=== PATIENT | female | born 2005 | race Two or more races ===

== ENCOUNTER 2025-04-26 00:26 | Emergency (ER) | payer MEDICAID, SELFPAY ==
[2025-04-26 00:33] VITALS: BMI 32.4
[2025-04-26 00:46] VITALS: BP 112/72; PULSE 97; RESP 18; TEMP 36.6; O2SAT 98
--- NOTE | 2025-04-26 00:58 | XR_ITS ---
Examination: CT brain head without contrast. 2-D sagittal coronal reconstructions Date and time of exam:April 26, 2025, 0209 hours INDICATION: Syncopal episode this morning CTDI: vol (mGy):48.8 DLP: (mGycm):963 Technique: Multiple CT axial sections of the brain have been obtained, 5 mm slice thickness. Contrast has not been administered. 2-D sagittal, coronal reconstructions have been obtained Low dose protocols were performed. One or more of the following dose reduction techniques were used; automated exposure control, adjustment of the mA and/or KV according to patient size, use of iterative reconstruction technique. Findings: No significant ventricular enlargement. Intra-axial or extra-axial hemorrhage density is not seen. No mass effect or midline shift Basal cisterns are not remarkable. Fourth ventricle is midline. Cranial vault intact. Impression: Negative for acute hemorrhage, mass effect or midline shift
--- NOTE | 2025-04-26 00:58 | XR_ITS ---
Examination: AP chest single view FINDINGS: Upright PA chest single view Date and time: April 26, 2025 0101 hours INDICATION: Syncopal episode yesterday. FINDINGS: Normal heart size Lungs are clear. The osseous structures are intact IMPRESSION: No active disease
--- NOTE | 2025-04-26 00:58 | EKG_ITS ---
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
--- NOTE | 2025-04-26 01:02 | PD.EDSYNC ---
ED Syncope RME/HPI General Chief Complaint: Syncope / Near Syncope Stated Complaint: Syncopal episode this AM Time Seen by Provider: 04/26/25 00:58 Arrival date/time: 04/26/25 00:26 19F with no significant PMH presents to ED with syncopal episode this morning when patient woke up. Patient states she woke up, stood up, heard a ringing in ears, got dizzy, and passed out. When patient woke up, she was lying on her bed. Patient denies AMS, history of seizures, N/V, vision changes, drug/alcohol use, CP, and SOB, as well as anxiety/depression. No chiropractor manipulation. Limitations: no limitations Related Data Allergies Allergy/AdvReac Type Severity Reaction Status Date / Time No Known Allergies Allergy Verified 04/26/25 00:33 Review of Systems Review of Systems Systems Reviewed: All systems reviewed, normal except as documented Constitutional Constitutional: Reports system reviewed and no additional complaints, except as documented, Denies fever(s) and Denies headache(s) ENT Ears, Nose, Mouth, and Throat: Denies disequilibrium and Denies headache(s) Cardiovascular Cardiovascular: Reports system reviewed and no additional complaints, except as documented, Denies chest pain, Denies dyspnea and Reports syncope Respiratory Respiratory: Reports system reviewed and no additional complaints, except as documented, Denies cough and Denies dyspnea Gastrointestinal Gastrointestinal: Reports system reviewed and no additional complaints, except as documented, Denies abdominal pain, Denies nausea and Denies vomiting Neurologic Neurologic: Reports system reviewed and no additional complaints, except as documented, Reports as per HPI, Denies confusion, Denies disequilibrium, Denies headache(s) and Reports syncope Psychiatric Psychiatric: Denies confusion Past Medical History Social History SMOKING STATUS: Never smoker ED Exam General Limitations: Present no limitations General appearance: Present alert and in no apparent distress Head Head exam: Present atraumatic Eye Eye exam: Present normal appearance, PERRL and EOMI ENT ENT exam: Present normal exam, normal oropharynx and mucous membranes moist Neck Neck exam: Present normal inspection, full ROM and trachea midline Chest Chest inspection: Present normal inspection and symmetric chest wall rise Respiratory Respiratory exam: Present normal lung sounds bilaterally Cardiovascular Cardiovascular exam: Present regular rate, normal rhythm and normal heart sounds Abdominal Exam Abdominal exam: Present soft and normal bowel sounds Extremities Exam Extremities exam: Present normal inspection and full ROM Back Exam Back exam: Present normal inspection and full ROM Neurological Exam Neurological exam: Present alert, oriented X3 and CN II-XII intact Psychiatric Psychiatric exam: Present normal affect and normal mood Skin Skin exam: Present warm, dry, intact and normal color Course Quality Measures none Orders Category Date Time Status EKG (ED ONLY) *Do not use* NOW Care 04/26/25 00:[address] head/brain wo con Stat Exams 04/26/25 00:58 Taken EKG (ED Only) Stat Exams 04/26/25 00:58 Draft XR chest 1V portable Stat Exams 04/26/25 00:58 Taken Alcohol, Blood Medical Stat Lab 04/26/25 01:15 Completed CBC Stat Lab 04/26/25 01:15 Completed Comprehensive Metabolic Panel Stat Lab 04/26/25 01:15 Completed D-Dimer Stat Lab 04/26/25 01:15 Completed Drug Screen,Urine Stat Lab 04/26/25 03:10 Completed HCG Qualitative,Urine Stat Lab 04/26/25 03:10 Completed Troponin I Stat Lab 04/26/25 01:15 Completed Urinalysis Stat Lab 04/26/25 03:10 Completed Vital Signs Vital signs: Vital Signs Temperature 98 F 04/26/25 00:46 Pulse Rate 97 04/26/25 00:46 Respiratory Rate 18 04/26/25 00:46 Blood Pressure 112/72 04/26/25 00:46 Pulse Oximetry (%) 98 04/26/25 00:46 Oxygen Delivery Method Room Air 04/26/25 00:46 O2 at 98% on RA and WNLs Syncope MDM Narrative MDM Narrative:: 19F with no significant PMH presents to ED with syncopal episode this morning when patient woke up. Patient states she woke up, stood up, heard a ringing in ears, got dizzy, and passed out. When patient woke up, she was lying on her bed. Patient denies AMS, history of seizures, N/V, vision changes, drug/alcohol use, CP, and SOB, as well as anxiety/depression. No chiropractor manipulation. Physical exam reveals normal pupil response and EOM. CN II-XII grossly intact. Gait normal. Speech normal. Normal WOB. Neck ROM intact. Patient is afebrile, calm, and alert. CT unremarkable. EKG is NSR. Normal trop and D-dimer. Wet CXR read normal pending official report. CMP unremarkable. HCG/tox/alcohol screen. UA clean. Patient data External records reviewed:: None Clinical information provided by:: patient Social determinants that could affect healthcare access:: none Patient has the following chronic illnesses:: none How is presenting disease/condition affected by chronic disease/condition?: no chronic disease Evaluation data The following diagnostics were reviewed and interpreted by me:: lab results, radiology exam(s) and EKG tracing(s) Lab and/or radiology exams considered but not ordered:: ordered Interpretation Summary: above Medications / Prescriptions Medications or Prescriptions considered but not ordered:: not ordered Medication administrations:: n/a Consultations Consultation(s) initiated? (list below): No Diagnosis Syncope Differential Diagnosis: syncope due to orthostatic hypotension, vasovagal syncope, complete atrioventricular block, subarachnoid hemorrhage, pulmonary embolism and dehydration Most likely diagnosis given after review of the tests above:: vasovagal syncope Admission Indicated Admission indicated?: not indicated Admission Request Was there a request for admission?: No Disposition Plan Disposition Plan: Discharge Discharge Attestation Discharge Attestation: The patient and all family members were given an opportunity to ask questions and understood the discharge instructions. Discharge instructions specifically effects, indications for sooner follow up or return to the emergency department, and the expected course of current diagnosis. Patient condition: Stable Discharge Plan Plan Patient Disposition: HOME (Self Care) Discharge Disposition comment: Stable Prescriptions/Referrals Referrals: Galilea Boone PA-C ([facility]) [Primary Care Provider] - In 1 week Problem List Clinical Impression: Vasovagal syncope Patient/Caregiver Discharge Instructions Education Materials: ED Fainting, Vagal Reaction Additional Instructions: Please follow-up with PCP within 24-48 hours and return immediately if symptoms worsen. Print Language: Japanese Stand Alone Forms: Patient Portal Info Letter MALENA/FLORENCIO Supervising Physician BISMARK Supervising Physician: Dr. Mckeon
[2025-04-26 01:24] LABS: Basophils % (Auto) 0 % (0-2.5); Eosinophils % (Auto) 0 % (0-10); Hematocrit 32.4 % (36.0-46.0); Hemoglobin 11.1 g/dL (12.0-16.0); Immature Granulocytes % (Auto) 0 % (0-0); Immature Granulocytes Auto 0.05 Thou/mm3 (0.00-0.00); Lymphocytes # (Auto) 3.2 Thou/mm3 (1.0-4.8); Lymphocytes % (Auto) 23 % (10-50); Mean Corpuscular HGB Conc 34.3 g/dl (31.0-37.0); Mean Corpuscular Volume 82 fL (80-100); Monocytes # (Auto) 0.8 Thou/mm3 (0.0-0.8); Monocytes % (Auto) 6 % (0-12); Neutrophils % (Auto) 71 % (37-80); Nucleated Red Blood Cell % 0 /100 WBC (0); Platelet Count 373 Thou/mm3 (140-440); RDW Standard Deviation 37.8 fL (36.4-46.3); Red Blood Count 3.96 Miln/mm3 (4.00-5.20); White Blood Count 14.1 Thou/mm3 (4.5-11.0)
[2025-04-26 01:50] LABS: D-Dimer < 250 ng/mL (<600)
[2025-04-26 02:03] LABS: Alanine Aminotransferase 13 U/L (10-49); Albumin, Serum 4.4 gm/dL (3.5-5.0); Albumin/Globulin Ratio 1.7 (1.2-2.2); Alcohol, Blood Medical < 3.0 mg/dL (0-10.0); Alkaline Phosphatase 85 U/L (46-116); Anion Gap 13 (7-16); Aspartate Amino Transferase 17 U/L (0-34); BUN/Creatinine Ratio 14 Ratio (12-20); Bilirubin,Total 0.4 mg/dL (0.3-1.2); Blood Urea Nitrogen 11 mg/dL (9-23); Calcium 8.9 mg/dL (8.3-10.6); Calcium (Corrected) 8.9 mg/dL (8.5-10.1); Carbon Dioxide 24.1 mMol/L (20.0-31.0); Chloride 106 mMol/L (98-107); Creatinine (Component) 0.8 mg/dL (0.6-1.3); Estimated Creatinine Clearance 114.5 mL/min (>60); Globulin 2.6 gm/dL (2.3-3.5); Glucose 104 mg/dL (74-106); Osmolality,Calculated 284 (275-295); Potassium 4.2 mMol/L (3.4-5.1); Sodium 143 mMol/L (136-145); Troponin I < 0.002 ng/mL (0.0-0.045); eGFR > 60 See Note
[2025-04-26 03:18] LABS: Collection Type, Urine Clean Catch
[2025-04-26 03:30] LABS: HCG Qualitative,Urine Negative
[2025-04-26 03:32] LABS: Bacteria,Urine Rare; Bilirubin,Urine Negative (Negative); Blood,Urine Negative (Negative); Clarity,Urine Turbid (Clear/Hazy); Color,Urine Yellow (Lt Yel-Yel); Glucose, Urine Negative (Negative); Ketones,Urine Trace (Negative); Leukocyte Esterase,Urine Negative (Negative); Nitrite,Urine Negative (Negative); Protein,Urine Trace (Neg - Trace); RBC,Urine 7 /hpf (0-3); Specific Gravity,Urine 1.027 (1.001-1.035); Squamous Epithelial Cell,Urine 8 /hpf (0-5); Urobilinogen,Urine Negative mg/dL (0.0-1.0); WBC,Urine 8 /hpf (0-5)
[2025-04-26 03:35] LABS: Amphetamine/Methamp Scrn,U Negative (Negative); Barbiturate Screen,Urine Negative (Negative); Benzodiazepines Screen,Urine Negative (Negative); Benzoylecgonine Screen, Ur Negative (Negative); Fentanyl Screen,Urine Negative (Negative); Opiate Screen,Urine Negative (Negative); THC Screen,Urine Negative (Negative)
--- NOTE | 2025-04-26 03:51 | PRELIM_ITS ---
CT scan of the head without intravenous contrast (axial sections with sagittal and coronal reformats) April 26, 2025 at 0209 hours Clinical History: Syncope. Comparison: None. Findings: No evidence of intracranial hemorrhage, mass effect or midline shift. The ventricles and CSF spaces are unremarkable. The calvarium is intact. The mastoid air cells and the visualized paranasal sinuses are clear. Impression: No evidence of intracranial hemorrhage, midline shift or calvarial fracture. Report Electronically Signed By: Margarito Bowles 04/26/2025 3:51:25 AM [EST]
[2025-04-26 04:01] VITALS: RESP 18
== END 2025-04-26 04:02 | disposition home or self-care (01) ==
PROVIDERS: Physician Assistant; Emergency Provider Emergency Medicine; PCP Physician Assistant
DX: R55 Syncope and collapse (principal)
CPT/HCPCS: 36415; 70450; 71045; 80053; 80307; 80320; 81001; 81025; 84484; 85025; 85379; 93005; 99284; G0480

== ENCOUNTER 2025-10-13 01:43 | Emergency (ER) | payer MEDICAID, SELFPAY ==
[2025-10-13 01:44] VITALS: BMI 30.2
[2025-10-13 01:45] VITALS: BP 133/86; PULSE 82; RESP 19; TEMP 37.1; O2SAT 98
--- NOTE | 2025-10-13 01:52 | XR_ITS ---
Examination: OB Transvaginal ultrasound of the pelvis, complete Technique: Transvaginal sonographic images pelvis performed using gorman scale imaging Exam date and time: October 13, 2025, 0225 hours INDICATIONS: Pelvic cramping and vaginal bleeding today FINDINGS: Uterus 8.1 cm intrauterine gestational sac 0.5 cm corresponds to 5 weeks 2 days gestational age No pole, no cardiac activity Right ovary 3.4 cm arterial flow Left ovary 2.0 cm arterial flow No fluid in the cul-de-sac IMPRESSION: Empty intrauterine gestational sac corresponding to 5 weeks 2 days gestational age, no pole, no cardiac activity Recommend short-term follow-up pelvic sonography to document viability
--- NOTE | 2025-10-13 01:53 | EDNOTE_ITS ---
ED OB Contraction Preg RMI/HPI General Chief complaint: Vaginal Bleeding Stated complaint: 5 WKS PREG ABD PAIN VAG BLEED Time Seen by Provider: 10/13/25 01:52 Arrival date/time: 10/13/25 01:43 20F at approximately 5 weeks and with no significant PMH presents to ED with 1 day of pelvic pain/cramping and vaginal spotting. Patient denies vaginal discharge and dysuria. Limitations: no limitations Related Data Allergies Allergy/AdvReac Type Severity Reaction Status Date / Time No Known Allergies Allergy Verified 10/13/25 01:47 Review of Systems Review of Systems Systems Reviewed: All systems reviewed, normal except as documented Genitourinary Genitourinary: Reports as per HPI, Reports abnormal vaginal bleeding and Reports pelvic pain Past Medical History Social History SMOKING STATUS: Never smoker ED Exam General Limitations: Present no limitations General appearance: Present alert and in no apparent distress Head Head exam: Present atraumatic Neck Neck exam: Present normal inspection, full ROM and trachea midline Chest Chest inspection: Present normal inspection and symmetric chest wall rise Neurological Exam Neurological exam: Present alert and oriented X3 Psychiatric Psychiatric exam: Present normal affect and normal mood Skin Skin exam: Present warm, dry, intact and normal color Course Quality Measures none Orders Category Date Time Status Administer Rhogam NOW Care 10/13/25 04:27 Active US OB transvaginal Stat Exams 10/13/25 01:52 Taken Beta HCG,Quantitative Stat Lab 10/13/25 03:24 Completed CBC Stat Lab 10/13/25 03:24 Completed CMP [Comprehensive Metabolic Panel] Stat Lab 10/13/25 03:24 Completed RHOGAM [Rho(D) Immune Globulin] Stat Lab 10/13/25 03:24 Results Type and Screen Stat Lab 10/13/25 03:24 Results Type and Screen Stat Lab 10/13/25 04:27 Ordered Urinalysis, C/S if Indicated Stat Lab 10/13/25 03:32 Completed Vital Signs Vital signs: Vital Signs Temperature 98.7 F 10/13/25 01:45 Pulse Rate 82 10/13/25 01:45 Respiratory Rate 19 10/13/25 01:45 Blood Pressure 133/86 H 10/13/25 01:45 Pulse Oximetry (%) 98 10/13/25 01:45 Oxygen Delivery Method Room Air 10/13/25 01:45 O2 at 98% on RA and WNLs Vaginal Bleeding MDM Narrative MDM Narrative: 20F at approximately 5 weeks and with no significant PMH presents to ED with 1 day of pelvic pain/cramping and vaginal spotting. Patient denies vaginal discharge and dysuria. Physical exam reveals well-appearing female. Patient is afebrile, calm, and alert. US Telerad IUP but no FHR. Minimal leukocytosis and anemia. CMP unremarkable. UA only blood. O- blood type. Rhogam given. Likely incomplete miscarriage since her HCG about 7 days ago at [facility] was in the 900s (per patient) and today it is in the 800s. Regional Loss Prevention Manager given. Patient data External records reviewed:: [facility] previous records Clinical information provided by:: patient Social determinants that could affect healthcare access:: none Patient has the following chronic illnesses:: none How is presenting disease/condition affected by chronic disease/condition?: no chronic disease Evaluation data The following diagnostics were reviewed and interpreted by me:: lab results and radiology exam(s) Lab and/or radiology exams considered but not ordered:: ordered Interpretation Summary: above Medications / Prescriptions Medications or Prescriptions considered but not ordered:: not ordered Medication administrations:: n/a Consultations Consultation(s) initiated? (list below): No Diagnosis Vaginal Bleeding Differential Diagnosis: missed , threatened , dysfunctional uterine bleeding, menometrorrhagia, incomplete , ectopic without intrauterine , vaginal bleeding and other (need for rhogam) Most likely diagnosis given after review of the tests above:: need for rhogam and incomplete miscarriage. Admission Indicated Admission indicated?: not indicated Admission Request Was there a request for admission?: No Disposition Plan Disposition Plan: Discharge Discharge Attestation Discharge Attestation: The patient and all family members were given an opportunity to ask questions and understood the discharge instructions. Discharge instructions specifically effects, indications for sooner follow up or return to the emergency department, and the expected course of current diagnosis. Patient condition: Stable Discharge Plan Plan Patient Disposition: HOME (Self Care) Discharge Disposition comment: Stable Prescriptions/Referrals Referrals: No Primary/Family,Physician [Primary Care Provider] - In 1 week Problem List Clinical Impression: Need for rhogam due to Rh negative mother, Incomplete miscarriage Patient/Caregiver Discharge Instructions Education Materials: ED Miscarriage, Incomplete Additional Instructions: Please follow-up with PCP/OBYGN within 24-48 hours and return immediately if symptoms worsen. You are likely going through a miscarriage as your HCG went from the 900s last week to 802 @ 10/13 3:24 AM today. Print Language: Nicaraguan Stand Alone Forms: Patient Portal Info Letter PA/PUBLIC ADDRESS SYSTEM INSTALLER Supervising Physician MALENA/FLORENCIO Supervising Physician: Dr. Figueroa
--- NOTE | 2025-10-13 03:08 | PRELIM_ITS ---
Pelvic ultrasound ( transvaginal) with Doppler and wave Doppler spectral analysis. October 13, 2025 at 0225 hours Clinical history: Pain/bleeding; 5 weeks. Technique: Real-time, grayscale, transabdominal and transvaginal pelvic ultrasound was performed using Duplex scanning including arterial inflow, venous outflow, color and spectral Doppler. Comparison: None available at the time of this report. Findings: The uterus is normal in size measuring 8.1 x 4.1 x 4.6 cm. Intrauterine gestational sac measuring 0.5 cm corresponding to a gestational age of 5 weeks and 2 days, the yolk sac is not visualized, the pole is not visualized. The right ovary measures 3.4 x 2.0 x 2.7 cm and is unremarkable. The left ovary measures 1.8 x 1.8 x 2.0 cm and is unremarkable. Both ovaries demonstrate color flow and spectral waveforms on Doppler evaluation. There is no adnexal mass. There is no free fluid on the submitted images. Impression: Intrauterine gestational sac measuring 0.5 cm corresponding to a gestational age of 5 weeks and 2 days. Short-term follow-up to assess for viability is recommended. No evidence of ovarian torsion. Report Electronically Signed By: Margarito Bowles 10/13/2025 3:07:59 AM [EST]
[2025-10-13 03:34] LABS: Basophils # (Auto) 0.0 Thou/mm3 (0.0-0.2); Basophils % (Auto) 0 % (0-2.5); Eosinophils # (Auto) 0.1 Thou/mm3 (0.0-0.5); Eosinophils % (Auto) 1 % (0-10); Hematocrit 35.8 % (36.0-46.0); Hemoglobin 11.9 g/dL (12.0-16.0); Immature Granulocytes Auto 0.03 Thou/mm3 (0.00-0.00); Lymphocytes # (Auto) 3.1 Thou/mm3 (1.0-4.8); Lymphocytes % (Auto) 27 % (10-50); Mean Corpuscular HGB Conc 33.2 g/dl (31.0-37.0); Mean Corpuscular Hemoglobin 28.2 pg (25.0-35.0); Mean Corpuscular Volume 85 fL (80-100); Monocytes # (Auto) 0.9 Thou/mm3 (0.0-0.8); Monocytes % (Auto) 8 % (0-12); Neutrophils # (Auto) 7.2 Thou/mm3 (1.8-7.7); Neutrophils % (Auto) 64 % (37-80); Nucleated Red Blood Cell # 0.00 Thou/mm3 (0.00-0.00); Nucleated Red Blood Cell % 0 /100 WBC (0); Platelet Count 324 Thou/mm3 (140-440); RDW Standard Deviation 38.5 fL (36.4-46.3); Red Blood Count 4.22 Miln/mm3 (4.00-5.20); White Blood Count 11.3 Thou/mm3 (3.6-11.0)
[2025-10-13 03:49] LABS: Collection Type, Urine Clean Catch
[2025-10-13 04:02] LABS: Alanine Aminotransferase 14 U/L (10-49); Albumin, Serum 4.7 gm/dL (3.5-5.0); Albumin/Globulin Ratio 2.0 (1.2-2.2); Alkaline Phosphatase 79 U/L (46-116); Anion Gap 10 (7-16); Aspartate Amino Transferase 20 U/L (0-34); BUN/Creatinine Ratio 10 Ratio (12-20); Bilirubin,Total 0.3 mg/dL (0.3-1.2); Blood Urea Nitrogen 7 mg/dL (9-23); Calcium 8.9 mg/dL (8.3-10.6); Calcium (Corrected) 8.9 mg/dL (8.5-10.1); Carbon Dioxide 23.4 mMol/L (20.0-31.0); Chloride 106 mMol/L (98-107); Creatinine (Component) 0.7 mg/dL (0.6-1.3); Estimated Creatinine Clearance 130.0 mL/min (>60); Globulin 2.3 gm/dL (2.3-3.5); Glucose 100 mg/dL (74-106); Osmolality,Calculated 275 (275-295); Potassium 3.9 mMol/L (3.4-5.1); Sodium 139 mMol/L (136-145); Total Protein 7.0 gm/dL (5.7-8.2); eGFR > 60 See Note
[2025-10-13 04:06] LABS: Bilirubin,Urine Negative (Negative); Blood,Urine 3+ (Negative); Clarity,Urine Clear (Clear/Hazy); Color,Urine Lt-Yellow (Lt Yel-Yel); Culture Indicated,Urine Not Indicated; Glucose, Urine Negative (Negative); Ketones,Urine Negative (Negative); Leukocyte Esterase,Urine Negative (Negative); Nitrite,Urine Negative (Negative); PH,Urine 6.0 (5.0-7.0); Protein,Urine Negative (Neg - Trace); RBC,Urine 32 /hpf (0-3); Specific Gravity,Urine 1.014 (1.001-1.035); Squamous Epithelial Cell,Urine 4 /hpf (0-5); Urobilinogen,Urine Negative mg/dL (0.0-1.0); WBC,Urine 3 /hpf (0-5)
[2025-10-13 04:11] LABS: Beta HCG,Quantitative 802 mIU/mL (<5.0)
[2025-10-13 07:53] VITALS: BP 136/82; PULSE 78; RESP 18; TEMP 37; O2SAT 97
[2025-10-13 09:03] VITALS: BP 104/71; PULSE 64; RESP 19; TEMP 36.4
== END 2025-10-13 09:17 | disposition home or self-care (01) ==
PROVIDERS: Physician Assistant; Emergency Provider Emergency Medicine
DX: O03.4 Incomplete spontaneous abortion without complication (principal); Z3A.01 Less than 8 weeks gestation of pregnancy
CPT/HCPCS: 36415; 76817; 80053; 81001; 84702; 85025; 86850; 86900; 86901; 99283; J2790